=== PATIENT | female | born 1960 | race Caucasian/White ===

== ENCOUNTER → 2016-08-22 | Outpatient (CLI) | payer BC, OTHER ==
[~2016-08-22] MED LIST: BCPILLS PO
--- NOTE | 2016-08-22 12:52 | MAMMOGRAPHY REPORT ---
BILATERAL DIGITAL SCREENING MAMMOGRAM TOMOSYNTHESIS WITH CAD: 08/22/2016 TECHNIQUE: Breast tomosynthesis in addition to standard 2D mammography was performed. Current study was also evaluated with a Computer Aided Detection (CAD) system. COMPARISON: Comparison is made to exams dated: 08/15/2015 mammogram, 07/07/2014 mammogram, 2 mammogram, 06/13/2013 mammogram, 05/28/2011 mammogram, and 05/27/2010 mammogram - [facility]. BREAST COMPOSITION: The tissue of both breasts is heterogeneously dense, which may obscure small ma sses. FINDINGS: No suspicious masses, calcifications, or areas of architectural distortion are noted in e ither breast. There has been no significant interval change compared to prior exams. Asymmetry in t he left breast on the MLO view along the posterior nipple line posteriorly has the appearance of nor mal fibroglandular tissue on the tomosynthesis images, and appears similar to some of the prior exam s including the 2012 and 2013 exams. IMPRESSION: ACR BI-RADS CATEGORY 2: BENIGN There is no mammographic evidence of malignancy. A 1 year screening mammogram is recommended. The p atient will receive written notification of the results. Approximately 10% of breast cancers are not detected with mammography. A negative mammographic repor t should not delay biopsy if a clinically suggestive mass is present. Kaylee De Jesus M.D. /:08/22/2016 09:07:14 Medical Secretary Receptionist: Lakesha PAGE)(Samantha), [facility] letter sent: Normal 1/2 BI-RADS Code: ACR BI-RADS Category 2: Benign
== END | disposition home or self-care (01) ==
LOC: C.MAMM 08:35
PROVIDERS: ATTEND Obstetrics & Gynecology
DX: Z12.31 Encounter for screening mammogram for malignant neoplasm of breast (principal)

== ENCOUNTER → 2017-08-25 | Outpatient (CLI) | payer OTHER ==
--- NOTE | 2017-08-26 14:02 | MAMMOGRAPHY REPORT ---
BILATERAL DIGITAL SCREENING MAMMOGRAM TOMOSYNTHESIS WITH CAD: 08/25/2017 CLINICAL HISTORY: Routine screening. Patient has no complaints. TECHNIQUE: Breast tomosynthesis in addition to standard 2D mammography was performed. Current study was also evaluated with a Computer Aided Detection (CAD) system. COMPARISON: Comparison is made to exams dated: 08/22/2016 mammogram, 08/15/2015 mammogram, 07/07/2014 m ammogram, 06/13/2013 mammogram, 06/09/2012 mammogram, and 05/28/2011 mammogram - [facility]. BREAST COMPOSITION: The tissue of both breasts is heterogeneously dense, which may obscure small mas ses. FINDINGS: There is a newly visualized lobulated and beaded 18 mm circumscribed mass in the lateral a nterior right breast, best seen on the CC view, for which additional targeted ultrasound and possible additional mammographic views are recommended. No other suspicious mass, architectural distortion or cluster of microcalcifications is seen bilatera lly. IMPRESSION: ACR BI-RADS CATEGORY 0: INCOMPLETE EVALUATION: NEED ADDITIONAL IMAGING EVALUATION The newly visualized lobulated and beaded 18 mm circumscribed mass in the lateral, anterior right thom ast needs additional evaluation. The patient will be called to schedule an appointment. Approximately 10% of breast cancers are not detected with mammography. A negative mammographic report should not delay biopsy if a clinically suggestive mass is present. Emerita Arenas M.D. ay/:08/25/2017 17:43:26 Brazer Crawler Torch: Tracie SIMS(Latricia)(Samantha)(LIUDMILA), [facility] letter sent: Addl Imaging 0 BI-RADS Code: ACR BI-RADS Category 0: Incomplete Evaluation: Need Additional Imaging Evaluation
== END | disposition home or self-care (01) ==
LOC: C.MAMM 09:17
PROVIDERS: ATTEND Obstetrics & Gynecology
DX: Z12.31 Encounter for screening mammogram for malignant neoplasm of breast (principal); N63.10 Unspecified lump in the right breast, unspecified quadrant

== ENCOUNTER → 2017-09-01 | Outpatient (CLI) | payer OTHER ==
--- NOTE | 2017-09-01 09:54 | DIAGNOSTIC IMAGING REPORT ---
CHEST 2 VIEWS ROUTINE CLINICAL HISTORY: CHEST PAIN pain COMPARISON STUDY: No previous studies for comparison. FINDINGS: The bones soft tissues and hemidiaphragms are normal. The cardiomediastinal silhouette is normal. The lungs are clear. The pulmonary vasculature is normal. IMPRESSION: Negative chest. The above report was generated using voice recognition software. It may contain grammatical, syntax or spelling errors. Electronically signed by: Luan Oakley M.D. 09/01/2017 9:53 AM Dictated Date/Time: 09/01/2017 9:47 AM
== END | disposition home or self-care (01) ==
LOC: C.RAD1850 09:35
PROVIDERS: ATTEND Family Medicine
DX: R07.9 Chest pain, unspecified (principal)

== ENCOUNTER → 2017-09-04 | Outpatient (CLI) | payer OTHER ==
--- NOTE | 2017-09-04 14:58 | MAMMOGRAPHY REPORT ---
UNILATERAL RIGHT DIGITAL DIAGNOSTIC MAMMOGRAM TOMOSYNTHESIS AND TARGETED RIGHT ULTRASOUND: 09/04/2017 CLINICAL HISTORY: Callback from screening mammogram for right breast mass. TECHNIQUE: Breast tomosynthesis in addition to standard 2D mammography was performed. Spot compress ion right CC and MLO tomosynthesis images were obtained. COMPARISON: Comparison is made to exams dated: 09/04/2017 ultrasound, 08/25/2017 mammogram, 08/22/2016 ma mmogram, 08/15/2015 mammogram, 07/07/2014 mammogram, and 06/13/2013 mammogram - [facility]. BREAST COMPOSITION: The tissue of the right breast is heterogeneously dense, which may obscure small masses. FINDINGS: The previously seen lobulated 18 mm mass within the lateral anterior breast at approximatel y 8-9:00 is not evident on the additional spot compression tomosynthesis images. No suspicious mass, architectural distortion, or other suspicious finding is seen on the additional spot compression vie ws. Targeted ultrasound was performed of the lateral anterior right periareolar breast at approximately 8 to 9:00 and right subareolar breast, which shows sonographically normal tissue without evidence of a mass or other suspicious sonographic normality. IMPRESSION: ACR BI-RADS CATEGORY 2: BENIGN, TARGETED ULTRASOUND ACR BI-RADS CATEGORY 2: BENIGN The previously described lobulated mass in the right lateral anterior breast is not evident on the ad ditional spot compression views, with no corresponding suspicious sonographic abnormality evident. F indings are benign and may represent normal fibroglandular tissue or a resolved cyst. There is no ma mmographic or targeted sonographic evidence of malignancy. A 1 year screening mammogram is recommende d. The patient has been verbally notified of the results. Approximately 10% of breast cancers are not detected with mammography. A negative mammographic report should not delay biopsy if a clinically suggestive mass is present. Kaylee De Jesus M.D. ah/:09/04/2017 10:02:02 Malted Milk Mixer: Allie SIMS(Latricia)(M), [facility] letter sent: Normal 1/2 BI-RADS Code: ACR BI-RADS Category 2: Benign Ultrasound BI-RADS: ACR BI-RADS Category 2: Benign
== END ==
LOC: C.MAMM 09:10
PROVIDERS: ATTEND Obstetrics & Gynecology
DX: Z12.31 Encounter for screening mammogram for malignant neoplasm of breast (principal); N63.10 Unspecified lump in the right breast, unspecified quadrant

== ENCOUNTER → 2017-09-04 | Outpatient (CLI) | payer OTHER | LOC: C.PAPS 09:00 | PROVIDERS: ATTEND Obstetrics & Gynecology | DX: Z12.31 Encounter for screening mammogram for malignant neoplasm of breast (principal) ==